=== PATIENT | male | born 1995 | race African-American/Black ===

== ENCOUNTER 2018-11-27 11:04 | Emergency (ER) | payer SELFPAY ==
[~2018-11-27] VITALS: Ht 172.7 cm; Wt 91.0 kg
[2018-11-27] MEDS ORDERED: IBUPROFEN 600MG TABLET PO ONE (13:15)
[2018-11-27 15:01] VITALS: BP 119/92
== END 2018-11-27 15:01 | disposition home or self-care (01) ==
LOC: ER 11:04
DX: S60.221A Contusion of right hand, initial encounter (principal); V43.52XA Car driver injured in collision with other type car in traffic accident, initial encounter; W22.11XA Striking against or struck by driver side automobile airbag, initial encounter; Y93.89 Activity, other specified; Y92.488 Other paved roadways as the place of occurrence of the external cause
CPT/HCPCS: 73130; 99283